=== PATIENT | male | born 1950 | race Caucasian/White ===

== ENCOUNTER → 2018-12-02 10:07 | Outpatient (CLI) | payer MEDICARE, SELFPAY ==
[2018-12-02 10:18] LABS: Microscopic, Urine URINE MICROSCOPIC (MICROSCOPIC)
[2018-12-02 14:01] LABS: Appearance,Urine CLEAR (Clear); Bilirubin,Urine Negative (Negative); Blood, Urine 1+ (Negative); Color,Urine STRAW (Yellow); Glucose,Urine (UA) Negative (Negative); Ketones,Urine Negative (Negative); Leukocyte Esterase,Urine Negative (Negative); Nitrate,Urine Negative (Negative); PH,Urine 6.5 (5.0-8.5); Protein,Urine Negative (Negative); Urobilinogen,Urine 0.2 EU/dl (0.2)
[2018-12-02 14:02] LABS: Basophils % 0.5 % (0.1-2.0); Eosinophils # 0.1 K/mm3 (0.0-0.4); Eosinophils % 1.5 % (0.1-12.0); Hemoglobin 14.2 g/dL (14.1-18.0); Lymphocytes # 1.5 K/mm3 (0.7-4.5); Lymphocytes % 17.2 % (10-50); Mean Corpuscular HGB Conc 30.3 g/dL (31.8-35.4); Mean Corpuscular Hemoglobin 27.2 pg (27.0-31.2); Mean Corpuscular Volume 89.8 fl (80-94); Mean Platelet Volume 8.8 fl (7.4-10.4); Monocytes # 0.6 K/mm3 (0.1-1.0); Monocytes % 6.6 % (1.7-9.3); Neutrophils # 6.5 K/mm3 (1.8-7.8); Neutrophils % 74.1 % (37.0-80.0); Platelet Count 141 K/mm3 (142-424); Red Blood Count 5.24 M/mm3 (4.60-6.20); Red Cell Distribution Width 17.4 % (11.5-17.5); White Blood Count 8.8 K/mm3 (4.8-10.8)
[2018-12-02 14:27] LABS: Alanine Aminotransferase 44 U/L (12-78); Albumin Level 3.5 gm/dL (3.4-5.0); Alkaline Phosphatase 115 U/L (46-116); Anion Gap 10.9 mEq/L (5-15); Aspartate Amino Transferase 29 U/L (15-37); Bilirubin,Total 1.7 mg/dL (0.2-1.0); Blood Urea Nitrogen 21 mg/dL (7-18); Calcium 8.9 mg/dL (8.5-10.1); Carbon Dioxide 33 mmol/L (21.0-32.0); Chloride 104 mmol/L (98-107); Chol/HDL Ratio 3.3 (1-3.5); Cholesterol 145 mg/dL (140-200); Creatine Kinase 94 U/L (39-308); Creatinine,Serum 1.55 mg/dL (0.70-1.30); Estimated Glomerular Filt Rate 45 ml/min (>60); GFR (African American) 54 ML/MIN (>60); Globulin 3.6 gm/dl (1.3-3.2); Glucose 96 mg/dL (74-106); HDL Cholesterol 44 mg/dL (27-67); LDL Cholesterol 81 mg/dL (0-130); Potassium 3.9 mmoL/L (3.5-5.1); Sodium 144 mmol/L (136-145); Thyroid Stimulating Hormone 1.99 uIU/ml (0.358-3.740); Total Protein,Serum 7.1 gm/dL (6.4-8.2); Triglycerides 100 mg/dL (30-200); VLDL Cholesterol 20 mg/dL (0-40)
[2018-12-02 14:29] LABS: Squamous Epithelial Cell,Urine Occasional #/hpf (0-5)
[2018-12-03 11:07] LABS: Folate 13.5 ng/mL (>3.0); Vitamin B12 1283 pg/mL (232-1245)
== END ==
PROVIDERS: PCP Emergency Medicine; Visit Provider Emergency Medicine
DX: E78.5 Hyperlipidemia, unspecified (principal); I25.10 Atherosclerotic heart disease of native coronary artery without angina pectoris; Z12.5 Encounter for screening for malignant neoplasm of prostate; N18.9 Chronic kidney disease, unspecified
CPT/HCPCS: 36415; 80053; 80061; 81001; 82550; 82607; 82746; 84443; 85025; G0103

== ENCOUNTER → 2018-12-23 10:18 | Outpatient (CLI) | payer MEDICARE, SELFPAY ==
[2018-12-23 14:27] LABS: Albumin Level 3.6 gm/dL (3.4-5.0); Anion Gap 11.3 mEq/L (5-15); Blood Urea Nitrogen 21 mg/dL (7-18); Calcium 8.7 mg/dL (8.5-10.1); Carbon Dioxide 32 mmol/L (21.0-32.0); Chloride 104 mmol/L (98-107); Creatinine,Serum 1.44 mg/dL (0.70-1.30); Estimated Glomerular Filt Rate 48 ml/min (>60); GFR (African American) 59 ML/MIN (>60); Glucose 104 mg/dL (74-106); Phosphorous 4.4 mg/dL (2.4-4.9); Potassium 4.3 mmoL/L (3.5-5.1); Sodium 143 mmol/L (136-145)
[2018-12-23 15:11] LABS: Creatinine,Urine Random 12 mg/dL (20-320)
[2018-12-23 15:55] LABS: Total Protein,Urine Random < 6.0 mg/dL (0.0-11.9)
== END ==
PROVIDERS: PCP Emergency Medicine
DX: N18.9 Chronic kidney disease, unspecified (principal)
CPT/HCPCS: 36415; 80069; 82570; 84155

== ENCOUNTER → 2019-04-04 09:18 | Outpatient (CLI) | payer MEDICARE, SELFPAY ==
[2019-04-04 13:40] LABS: Basophils % 0.5 % (0.1-2.0); Eosinophils # 0.2 K/mm3 (0.0-0.4); Eosinophils % 2.9 % (0.1-12.0); Hematocrit 46.1 % (42.0-52.0); Hemoglobin 13.7 g/dL (14.1-18.0); Lymphocytes # 1.5 K/mm3 (0.7-4.5); Lymphocytes % 19.4 % (10-50); Mean Corpuscular HGB Conc 29.8 g/dL (31.8-35.4); Mean Corpuscular Hemoglobin 30.3 pg (27.0-31.2); Mean Corpuscular Volume 101.9 fl (80-94); Mean Platelet Volume 8.8 fl (7.4-10.4); Monocytes # 0.5 K/mm3 (0.1-1.0); Neutrophils # 5.4 K/mm3 (1.8-7.8); Neutrophils % 71.2 % (37.0-80.0); Platelet Count 135 K/mm3 (142-424); Red Blood Count 4.52 M/mm3 (4.60-6.20); Red Cell Distribution Width 16.1 % (11.5-17.5); White Blood Count 7.6 K/mm3 (4.8-10.8)
[2019-04-04 14:26] LABS: Anion Gap 13.9 mEq/L (5-15); Blood Urea Nitrogen 20 mg/dL (7-18); Calcium 8.3 mg/dL (8.5-10.1); Carbon Dioxide 27 mmol/L (21.0-32.0); Chloride 108 mmol/L (98-107); Creatinine,Serum 1.41 mg/dL (0.70-1.30); Estimated Glomerular Filt Rate 50 ml/min (>60); GFR (African American) 60 ML/MIN (>60); Glucose 129 mg/dL (74-106); Potassium 3.9 mmoL/L (3.5-5.1); Sodium 145 mmol/L (136-145)
== END ==
PROVIDERS: PCP Emergency Medicine; Visit Provider Emergency Medicine
DX: N18.9 Chronic kidney disease, unspecified (principal)
CPT/HCPCS: 36415; 80048; 85025

== ENCOUNTER → 2019-12-23 08:17 | Outpatient (CLI) | payer MEDICARE, SELFPAY ==
[2019-12-23 08:22] LABS: Microscopic, Urine URINE MICROSCOPIC (MICROSCOPIC)
[2019-12-23 14:33] LABS: Basophils % 0.4 % (0.1-2.0); Eosinophils # 0.2 K/mm3 (0.0-0.4); Eosinophils % 2.7 % (0.1-12.0); Hematocrit 42.5 % (42.0-52.0); Hemoglobin 14.3 g/dL (14.1-18.0); Lymphocytes # 1.4 K/mm3 (0.7-4.5); Lymphocytes % 18.3 % (10-50); Mean Corpuscular HGB Conc 33.5 g/dL (31.8-35.4); Mean Corpuscular Hemoglobin 33.2 pg (27.0-31.2); Monocytes # 0.5 K/mm3 (0.1-1.0); Monocytes % 6.5 % (1.7-9.3); Neutrophils # 5.5 K/mm3 (1.8-7.8); Neutrophils % 72.1 % (37.0-80.0); Platelet Count 112 K/mm3 (142-424); Red Blood Count 4.29 M/mm3 (4.60-6.20); Red Cell Distribution Width 14.8 % (11.5-17.5); White Blood Count 7.6 K/mm3 (4.8-10.8)
[2019-12-23 14:39] LABS: Appearance,Urine CLEAR (Clear); Bilirubin,Urine Negative (Negative); Blood, Urine 1+ (Negative); Color,Urine YELLOW (Yellow); Glucose,Urine (UA) Negative (Negative); Ketones,Urine Negative (Negative); Leukocyte Esterase,Urine Negative (Negative); Nitrate,Urine Negative (Negative); Protein,Urine Negative (Negative); Specific Gravity, Urine 1.025 (1.005-1.030); Urobilinogen,Urine 0.2 EU/dl (0.2)
[2019-12-23 15:40] LABS: Alanine Aminotransferase 15 U/L (12-78); Albumin Level 3.7 g/dl (3.5-5.0); Albumin/Globulin Ratio 1.3 (1.1-1.8); Alkaline Phosphatase 101 U/L (38-126); Anion Gap 13.4 mEq/L (5-15); Aspartate Amino Transferase 29 U/L (17-59); Blood Urea Nitrogen 17 mg/dl (9-20); Carbon Dioxide 30 mmol/L (22.0-30.0); Chloride 103 mmol/L (98-107); Chol/HDL Ratio 3.1 (1-3.5); Cholesterol 119 mg/dl (140-200); Estimated Glomerular Filt Rate 66 ml/min (>60); GFR (African American) 80 ML/MIN (>60); Globulin 2.8 g/dL (1.3-3.2); Glucose 100 mg/dl (74-100); HDL Cholesterol 38 mg/dl (40-60); Potassium 4.4 mmoL/L (3.5-5.1); Sodium 142 mmol/L (136-145); Total Protein,Serum 6.5 g/dl (6.3-8.2); Triglycerides 93 mg/dl (30-150); VLDL Cholesterol 19 mg/dL (0-40)
[2019-12-23 15:51] LABS: Direct LDL Cholesterol 70.75 mg/dL (100-129)
[2019-12-23 16:13] LABS: Prostate Specific Ag Screen 1.9 ng/ml (0.0-4.0); Thyroid Stimulating Hormone 3.69 uIU/mL (0.465-4.68)
== END ==
PROVIDERS: Visit Provider Emergency Medicine
DX: I12.9 Hypertensive chronic kidney disease with stage 1 through stage 4 chronic kidney disease, or unspecified chronic kidney disease (principal); E08.59 Diabetes mellitus due to underlying condition with other circulatory complications; N18.9 Chronic kidney disease, unspecified; M79.10 Myalgia, unspecified site; M10.9 Gout, unspecified; Z12.5 Encounter for screening for malignant neoplasm of prostate
CPT/HCPCS: 36415; 80053; 80061; 81001; 84443; 85025; G0103

== ENCOUNTER → 2020-09-13 17:25 | Outpatient (CLI) | payer MEDICARE, SELFPAY ==
[2020-09-13 17:58] LABS: Basophils # 0.1 K/mm3 (0-0.2); Basophils % 0.7 % (0.1-2.0); Eosinophils # 0.2 K/mm3 (0.0-0.4); Hematocrit 47.1 % (42.0-52.0); Hemoglobin 14.8 g/dL (14.1-18.0); Lymphocytes # 1.8 K/mm3 (0.7-4.5); Lymphocytes % 21.1 % (10-50); Mean Corpuscular HGB Conc 31.4 g/dL (31.8-35.4); Mean Corpuscular Hemoglobin 31.3 pg (27.0-31.2); Mean Corpuscular Volume 99.7 fl (80-94); Mean Platelet Volume 9.4 fl (7.4-10.4); Monocytes # 0.6 K/mm3 (0.1-1.0); Monocytes % 6.6 % (1.7-9.3); Neutrophils # 5.8 K/mm3 (1.8-7.8); Neutrophils % 69.6 % (37.0-80.0); Platelet Count 132 K/mm3 (142-424); Red Blood Count 4.72 M/mm3 (4.60-6.20); Red Cell Distribution Width 14.7 % (11.5-17.5); White Blood Count 8.4 K/mm3 (4.8-10.8)
[2020-09-13 18:28] LABS: Alanine Aminotransferase 19 U/L (12-78); Albumin Level 4.2 g/dl (3.5-5.0); Albumin/Globulin Ratio 1.6 (1.1-1.8); Alkaline Phosphatase 108 U/L (38-126); Anion Gap 11.3 mEq/L (5-15); Aspartate Amino Transferase 30 U/L (17-59); Bilirubin,Total 1.2 mg/dl (0.2-1.3); Blood Urea Nitrogen 24 mg/dl (9-20); Carbon Dioxide 30 mmol/L (22.0-30.0); Chloride 105 mmol/L (98-107); Cholesterol 125 mg/dl (140-200); Estimated Glomerular Filt Rate 46 ml/min (>60); GFR (African American) 56 ML/MIN (>60); Globulin 2.7 g/dL (1.3-3.2); Glucose 87 mg/dl (74-100); HDL Cholesterol 42 mg/dl (40-60); Potassium 5.3 mmoL/L (3.5-5.1); Sodium 141 mmol/L (136-145); Total Protein,Serum 6.9 g/dl (6.3-8.2); Triglycerides 80 mg/dl (30-150); Uric Acid 4.9 mg/dl (3.5-8.5); VLDL Cholesterol 16 mg/dL (0-40)
[2020-09-13 18:39] LABS: Direct LDL Cholesterol 63.13 mg/dL (100-129)
== END ==
PROVIDERS: Visit Provider Internal Medicine Adolescent Medicine
DX: I10 Essential (primary) hypertension (principal); E78.2 Mixed hyperlipidemia; M1A.0790 Idiopathic chronic gout, unspecified ankle and foot, without tophus (tophi)
CPT/HCPCS: 80053; 80061; 84550; 85025

== ENCOUNTER → 2021-03-14 18:08 | Outpatient (CLI) | payer MEDICARE, SELFPAY ==
[2021-03-14 18:41] LABS: Basophils % 0.6 % (0.1-2.0); Eosinophils # 0.1 K/mm3 (0.0-0.4); Eosinophils % 0.7 % (0.1-12.0); Hematocrit 46.1 % (42.0-52.0); Hemoglobin 14.9 g/dL (14.1-18.0); Lymphocytes # 1.3 K/mm3 (0.7-4.5); Lymphocytes % 18.4 % (10-50); Mean Corpuscular HGB Conc 32.2 g/dL (31.8-35.4); Mean Corpuscular Hemoglobin 32.3 pg (27.0-31.2); Mean Corpuscular Volume 100.2 fl (80-94); Mean Platelet Volume 10.2 fl (7.4-10.4); Monocytes % 13.6 % (1.7-9.3); Neutrophils # 4.7 K/mm3 (1.8-7.8); Neutrophils % 66.7 % (37.0-80.0); Platelet Count 134 K/mm3 (142-424); Red Cell Distribution Width 14.3 % (11.5-17.5)
[2021-03-14 19:39] LABS: Alanine Aminotransferase 22 U/L (12-78); Albumin Level 4.2 g/dl (3.5-5.0); Albumin/Globulin Ratio 1.4 (1.1-1.8); Alkaline Phosphatase 116 U/L (38-126); Anion Gap 8.8 mEq/L (5-15); Aspartate Amino Transferase 39 U/L (17-59); Bilirubin,Total 1.9 mg/dl (0.2-1.3); Blood Urea Nitrogen 16 mg/dl (9-20); Calcium 9.1 mg/dl (8.4-10.2); Carbon Dioxide 34 mmol/L (22.0-30.0); Chloride 102 mmol/L (98-107); Chol/HDL Ratio 2.9 (1-3.5); Cholesterol 115 mg/dl (140-200); Estimated Glomerular Filt Rate 54 ml/min (>60); GFR (African American) 65 ML/MIN (>60); Globulin 2.9 g/dL (1.3-3.2); Glucose 97 mg/dl (74-100); HDL Cholesterol 39 mg/dl (40-60); Potassium 4.8 mmoL/L (3.5-5.1); Sodium 140 mmol/L (136-145); Total Protein,Serum 7.1 g/dl (6.3-8.2); Triglycerides 92 mg/dl (30-150); VLDL Cholesterol 18 mg/dL (0-40)
[2021-03-14 19:50] LABS: Direct LDL Cholesterol 52.57 mg/dL (100-129)
== END ==
PROVIDERS: Visit Provider Internal Medicine Adolescent Medicine
DX: I10 Essential (primary) hypertension (principal)
CPT/HCPCS: 80053; 80061; 85025

== ENCOUNTER → 2022-06-28 23:28 | Outpatient (CLI) | payer MEDICARE, MEDICAID, SELFPAY ==
[2022-06-28 17:38] LABS: Basophils # 0.1 K/mm3 (0-0.2); Basophils % 0.6 % (0.1-2.0); Eosinophils # 0.2 K/mm3 (0.0-0.4); Hemoglobin 15.4 g/dL (14.1-18.0); Lymphocytes # 1.7 K/mm3 (0.7-4.5); Lymphocytes % 19.7 % (10-50); Mean Corpuscular HGB Conc 31.5 g/dL (31.8-35.4); Mean Corpuscular Volume 98.4 fl (80-94); Mean Platelet Volume 9.8 fl (7.4-10.4); Monocytes # 0.7 K/mm3 (0.1-1.0); Monocytes % 8.3 % (1.7-9.3); Neutrophils # 5.9 K/mm3 (1.8-7.8); Neutrophils % 69.5 % (37.0-80.0); Platelet Count 149 K/mm3 (142-424); Red Blood Count 4.98 M/mm3 (4.60-6.20); Red Cell Distribution Width 14.8 % (11.5-17.5); White Blood Count 8.6 K/mm3 (4.8-10.8)
[2022-06-28 18:29] LABS: Hemoglobin A1C 5.6 % (4.0-6.0)
[2022-06-28 18:44] LABS: Alanine Aminotransferase 18 U/L (12-78); Albumin/Globulin Ratio 1.4 (1.1-1.8); Alkaline Phosphatase 116 U/L (38-126); Anion Gap 11.6 mEq/L (5-15); Aspartate Amino Transferase 31 U/L (17-59); Bilirubin,Total 1.4 mg/dl (0.2-1.3); Blood Urea Nitrogen 18 mg/dl (9-20); Calcium 8.6 mg/dl (8.4-10.2); Carbon Dioxide 32 mmol/L (22.0-30.0); Chloride 102 mmol/L (98-107); Cholesterol 133 mg/dl (140-200); Estimated Glomerular Filt Rate 50 ml/min (>60); GFR (African American) 60 ML/MIN (>60); Globulin 2.9 g/dL (1.3-3.2); Glucose 75 mg/dl (74-100); HDL Cholesterol 44 mg/dl (40-60); Potassium 4.6 mmoL/L (3.5-5.1); Sodium 141 mmol/L (136-145); Total Protein,Serum 6.9 g/dl (6.3-8.2); Triglycerides 126 mg/dl (30-150); VLDL Cholesterol 25 mg/dL (0-40)
[2022-06-28 19:14] LABS: Thyroid Stimulating Hormone 3.46 uIU/mL (0.465-4.68)
== END ==
PROVIDERS: PCP Family Medicine; Visit Provider Family Medicine
DX: R73.03 Prediabetes (principal); I10 Essential (primary) hypertension; Z00.00 Encounter for general adult medical examination without abnormal findings; R53.83 Other fatigue
CPT/HCPCS: 80053; 80061; 83036; 84443; 85025

== ENCOUNTER 2023-09-28 15:25 | Emergency (ER) | payer MEDICARE, SELFPAY ==
[2023-09-28 16:03] VITALS: BP 153/99; PULSE 77; RESP 16; TEMP 36.5; O2SAT 99; BMI 28.6
--- NOTE | 2023-09-28 16:13 | EXP.UTC ---
Discharge Plan Disposition Patient Disposition: Home, Self-Care Condition: Good Prescriptions Prescriptions: New valacyclovir [Valtrex] 1 gram tablet 1,000 mg PO BID 10 Days Qty: 20 0RF methylprednisolone [Medrol (Benito)] 4 mg tablets,dose pack 4 mg PO DIRECTED Qty: 21 0RF trifluridine 1 % drops 1 drp ophthalmic (eye) Q2H 7 Days Qty: 7.5 0RF Rx Instructions: administer 9 doses per day while awake gabapentin [Neurontin] 100 mg capsule 100 mg PO Q8H PRN (Reason: pain/itching) Qty: 21 0RF No Action cyanocobalamin (vitamin B-12) 500 mcg lozenge 500 mcg PO DAILY zinc acetate 50 mg (zinc) capsule 50 mg PO DAILY aspirin 81 mg tablet,delayed release (DR/EC) 81 mg PO DAILY bumetanide 1 mg tablet 1 mg PO Q OTHER DAY 90 Days Qty: 45 1RF allopurinol 300 mg tablet See Rx Instructions .ROUTE .COMPLEX Qty: 90 1RF Dose Instruction: Take 1 tablet by mouth once daily Rx Instructions: Take 1 tablet by mouth once daily atorvastatin 40 mg tablet 40 mg PO DAILY 90 Days Qty: 90 1RF carvedilol 12.5 mg tablet 12.5 mg PO BID 90 Days Qty: 180 1RF Rx Instructions: must administer with a meal/food Farxiga 5 mg tablet 5 mg PO DAILY Qty: 30 3RF Referrals Follow up/Referrals: Rudy Sifuentes MD [Primary Care Provider] - See instructions Activity Restrictions/Add. 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 by RN): pt states he has shingles. pt presents with R eye and R facial edema. pt c/o inching and pain 09/16. ongoing since 09/25/23 HEENT Symptoms (Recalled from RN notes): Yes Resp Symptoms (Recalled from RN notes): No Skin Symptoms (Recalled from RN notes): Yes MS Symptoms (Recalled from RN notes): No Functional Status (Recalled from RN notes): wnl History of Present Illness Provider Complaint: Blistering right side of forehead, eyelid. Itchy and painful. Started 09/25/23. Onset (ago): day(s) (3) Location: face and eyes Severity: severe Quality: burning Relieving factors: none Exacerbating factors: none Associated symptoms: denies other symptoms Treatments prior to arrival: none Related Data Home Medications Medication Instructions Recorded Confirmed aspirin 81 mg tablet,delayed 81 mg PO DAILY 02/16/22 04/05/23 release cyanocobalamin (vitamin B-12) 500 500 mcg PO DAILY 02/16/22 04/05/23 mcg lozenges zinc acetate 50 mg (zinc) capsule 50 mg PO DAILY 02/16/22 04/05/23 Previous Rx's Medication Instructions Recorded bumetanide 1 mg tablet 1 mg PO Q OTHER DAY 90 days #45 04/18/23 tabs allopurinol 300 mg tablet See Rx Instructions .Route 05/21/23 .COMPLEX #90 tabs atorvastatin 40 mg tablet 40 mg PO DAILY 90 days #90 tabs 06/29/23 carvedilol 12.5 mg tablet 12.5 mg PO BID 90 days #180 tabs 08/15/23 dapagliflozin propanediol 5 mg 5 mg PO DAILY #30 tabs 09/23/23 tablet (Farxiga) gabapentin 100 mg capsule 100 mg PO Q8H PRN pain/itching #21 09/28/23 (Neurontin) caps methylprednisolone 4 mg tablets in 4 mg PO DIRECTED #21 tabs 09/28/23 a dose pack (Medrol (Benito)) trifluridine 1 % eye drops 1 drp ophthalmic (eye) Q2H 7 days 09/28/23 #7.5 mL valacyclovir 1 gram tablet 1,000 mg PO BID 10 days #20 tabs 09/28/23 (Valtrex) Allergies Allergy/AdvReac Type Severity Reaction Status Date / Time No Known Allergies Allergy Verified 09/28/23 16:07 Worker's Comp Is this a Worker's Comp case?: No [facility] Disclaimer: The information contained in this section may have been updated after the patient was seen, as this information can be updated by other users. Medical History Coronary artery disease Hyperlipidemia Hypertension Pacemaker Surgical History H/O endarterectomy H/O eye surgery H/O heart artery stent Heart valve replaced Family History Mother Coronary artery disease Diabetes Social History Smoking Status: Current every day smoker tobacco type: smokeless tobacco alcohol intake: never substance use type: denies use current occupational status: retired Travel in the last 8 weeks: None household members: none housing: house ROS Obtained: Yes All systems reviewed & no additional complaints except as documented Integumentary/Breasts Skin/Breast: Reports as per HPI, Reports pruritus, Reports rash and Reports skin pain Physical Exam General General appearance: alert and in no apparent distress Head Head exam: atraumatic, normocephalic and normal inspection Eye Eye exam: Present PERRL, EOMI, conjunctival redness and periorbital swelling Chest Chest inspection: Present normal inspection and symmetric chest wall rise; Absent tenderness Respiratory Respiratory exam: Present normal lung sounds bilaterally; Absent respiratory distress Cardiovascular Cardiovascular exam: Present regular rate and normal rhythm; Absent JVD Extremities Exam Extremities exam: Present normal inspection, full ROM and normal capillary refill; Absent calf tenderness Neurological Exam Neurological exam: Present alert and oriented X3 Psychiatric Psychiatric exam: Present normal affect and normal mood Skin Skin exam: Present warm, dry, intact, normal color and rash (shingles) Lymphatic Lymphatic Findings: no adenopathy Medical Decision Making Sae Inquiry Pt receiving controlled substance: No Vital Signs: 09/28/23 16:03 Temperature 97.7 F Temperature Source Oral Pulse Rate [Left] 77 Respiratory Rate 16 Blood Pressure [Right Arm] 153/99 H Blood Pressure Mean [Right Arm] 117 Blood Pressure Source [Right Arm] Automatic Cuff Blood Pressure Position [Right Arm] Sitting 02 Sat by Pulse Oximetry 99
[2023-09-28 16:34] VITALS: BP 151/101; PULSE 69; RESP 16; TEMP 36.5; O2SAT 99
== END 2023-09-28 16:37 | disposition home or self-care (01) ==
PROVIDERS: Emergency Provider Physician Assistant; PCP Family Medicine
DX: B02.39 Other herpes zoster eye disease (principal); B02.8 Zoster with other complications
CPT/HCPCS: 99204; 99212; G0463

== ENCOUNTER 2023-11-01 16:26 | Outpatient (CLI) | payer MEDICARE, SELFPAY ==
[2023-11-01 17:21] LABS: Basophils % 0.5 % (0.1-2.0); Eosinophils # 0.1 K/mm3 (0.0-0.4); Eosinophils % 1.6 % (0.1-12.0); Hematocrit 48.2 % (42.0-52.0); Hemoglobin 15.7 g/dL (14.1-18.0); Lymphocytes # 1.4 K/mm3 (0.7-4.5); Lymphocytes % 20.2 % (10-50); Mean Corpuscular HGB Conc 32.5 g/dL (31.8-35.4); Mean Corpuscular Hemoglobin 32.6 pg (27.0-31.2); Mean Corpuscular Volume 100.3 fl (80-94); Mean Platelet Volume 9.4 fl (7.4-10.4); Monocytes # 0.5 K/mm3 (0.1-1.0); Monocytes % 7.2 % (1.7-9.3); Neutrophils % 70.5 % (37.0-80.0); Platelet Count 128 K/mm3 (142-424); Red Blood Count 4.81 M/mm3 (4.60-6.20); Red Cell Distribution Width 15.4 % (11.5-17.5); White Blood Count 7.1 K/mm3 (4.8-10.8)
[2023-11-01 17:41] LABS: Alanine Aminotransferase 20 U/L (12-78); Albumin Level 3.7 g/dl (3.5-5.0); Albumin/Globulin Ratio 1.3 (1.1-1.8); Alkaline Phosphatase 108 U/L (38-126); Anion Gap 12.2 mEq/L (5-15); Aspartate Amino Transferase 32 U/L (17-59); Bilirubin,Total 1.6 mg/dl (0.2-1.3); Blood Urea Nitrogen 16 mg/dl (9-20); Calcium 8.9 mg/dl (8.4-10.2); Carbon Dioxide 27 mmol/L (22.0-30.0); Chloride 106 mmol/L (98-107); Estimated Glomerular Filt Rate 49 ml/min (>60); GFR (African American) 60 ML/MIN (>60); Globulin 2.8 g/dL (1.3-3.2); Glucose 71 mg/dl (74-100); Potassium 4.2 mmoL/L (3.5-5.1); Sodium 141 mmol/L (136-145); Total Protein,Serum 6.5 g/dl (6.3-8.2)
[2023-11-01 17:49] LABS: NT Pro Brain Natriuretic Pep. 4170 pg/mL (0-450)
== END 2023-11-01 23:59 | disposition home or self-care (01) ==
LOC: LAB.DROPOF 16:26
PROVIDERS: PCP Family Medicine; Visit Provider Family Medicine
DX: E78.5 Hyperlipidemia, unspecified (principal); I50.9 Heart failure, unspecified
CPT/HCPCS: 80053; 83880; 85025

== ENCOUNTER 2024-12-31 10:44 | Outpatient (CLI) | payer MEDICARE, SELFPAY ==
--- OUTSIDE RECORDS SUMMARY | 2024-12-24 10:30 | XMS_ITS | Encounter Summary ---
Author Organization [facility] [place] Address [address] [place] [address] Care Team Providers Care Salon Manager Name Role Phone Rudy Sifuentes MD Primary Care Provider [phone] Reason for Visit * Reason Comments Permanent atrial fibrillation Encounter Details Date Type Department Care Team (Late st Contact Info) Description 12/24/2024 10:30 AM EDT Office Visit [facility] [address] [facility] [address] [place] [id number] Eugene Kauffman MD [address] [facility] [address] [place] [address] Permanent atrial fibrillation (Primary Dx); Chronic systolic CHF (congestive heart failure); DCM (dilated cardiomyopathy); Coronary artery disease involving blackfeet coronary artery of blackfeet heart without angina pectoris Social History Tobacco Use Types Packs/Day Years Used Date Smoking Tobacco: Never Passive Smoke Exposure: Past Smokeless Tobacco: Current Chew Alcohol Use Standard Drinks/Week Comments No 0 (1 standard drink = 0.6 oz pur e alcohol) Sex and Gender Information Value Date Recorded Sex Assigned at Not on file Legal Sex Male 11:47 AM EDT Gender Identity Not on file Sexual Orientation Not on file Occupation Industry Job Start Date Job End Date Retired from [employer] Not on file Not on file Not on file documented as of this encounter Last Filed Vital Signs Vital Sign Reading Time Taken Comments Blood Pressure 120/80 12/24/2024 10:37 AM EDT Pulse 71 12/24/2024 10:37 AM EDT Temperature - - Respiratory Rate - - Oxygen Saturation 98% 12/24/2024 10: 37 AM EDT Inhaled Oxygen Concentration - - Weight 84.3 kg (185 lb 12.8 oz) 025 10:37 AM EDT Height 175.3 cm (5' 9.02 ) 12/24/2024 1 0:37 AM EDT Body Mass Index 27.43 12/24/2024 10:37 AM EDT documented in this encounter Progress Notes * Eugene Kauffman MD - 12/24/2024 10:30 AM EDTAssociated Order(s): ECG 12 Lead Post-Procedure Diagnose(s): DCM (dilated cardiomyopathy); Permanent atrial fibrillation; Chronic systolic CHF (congestive heart failure); Coronary artery disease involving blackfeet coronary artery of blackfeet heart without angina pectoris Micky Petersby 1950 Home phone not available 12/24/[address] [facility] Referring Provider: No ref. provider found Rudy Sifuentes MD [address] [place] [address] [facility] [place] [address] Chief Complaint Patient presents with Permanent atrial fibrillation Problem List: Aortic stenosis Echo 10/09/2017: EF 45-50%, LA is moderately dilated, mild-moderate AI, severe with mean gradient of 19.76mmHg (peak 30.51mmHg) and GLORY of 0.8cm2 Right and left heart cath 01/09/2018: severe low gradient low output , severe global depression with LVEF 37%, moderate-severe PAH, 2 vessel CAD (LAD and RCA) AVR with #27 [employer] Trifecta tissue valve, repair of ascending aneurysm, CABG x1 with SVG to PDA,left atrial MAZE and LA clip with #45 Atricure clip (02/01/2018) Echo 02/07/2018: left heart and right atrium are enlarged, global hypokinesia of both ventricles, LVEF is 20%, normally functioning bioprosthetic aortic valve is noted, mid MR and moderate TR, RVSP 49mmHg Echocardiogram 05/06/18: LVEF 0.25, LV moderately dilated, LA dilated, moderate MR, SHEILA successfullyoccluded, normal functioning bioprosthetic aortic valve ([employer] medical #27 trifecta). Echo 11/2018: EF < 20% and RVSP = 56 mmHg Echo, 07/21/21, EF 21-25%. LV mildly dilated, LV with borderline LVH, RA mildly dilated, mod MR, Moderate TR. Echocardiogram 01/2024: EF 35 to 40%, mild left atrial enlargement, mild MR, mild TR, mild pulmonicinsufficiency global hypokinesis Permanent Atrial fibrillation, asymptomatic CHADsVASC=4, previously on Eliquis MAZE and LA clip with #45 Atricure clip 02/01/2018, AGR Carotid artery stenosis Critical LICA stenosis s/p left CEA 2015, AGR Carotid duplex 08/2017: 50-69% HEMANTH stenosis, no hemodynamically significant LICA stenosis Hypertension Coronary artery disease [facility] 01/2018: 2 vessel CAD, EF 37% CABG x1 (SVG to PDA) at time of AVR/MAZE/SHEILA clip Hyperlipidemia Mixed cardiomyopathy/Chronic Systolic CHF EF 37% by cath 01/09/18 EF 20 % post op, 02/07/18 - Lifevest at discharge 02/08/18 EF 25% by RASHID, 05/06/18 DDD ICD ([facility]) Implant 06/17/18 - Dr. Kauffman Intolerance to ARB/JUANY - hypotension CKD III History of nephrolithiasis History of polypectomy Chewing tobacco use Acute RUQ pain November 2018 Cholecystitis ruled out by HIDA scan Thought related to congestive hepatopathy EGD with no varices, duodenitis or ulcers Allergies No Known Allergies Current Medications Current Outpatient Medications: allopurinol (ZYLOPRIM) 300 MG tablet, Take 1 tablet by mouth Daily., Disp: , Rfl: aspirin 81 MG tablet, Take 1 tablet by mouth Every Morning., Disp: , Rfl: atorvastatin (LIPITOR) 40 MG tablet, Take 1 tablet by mouth Daily., Disp: , Rfl: bumetanide (BUMEX) 1 MG tablet, Take 1 tablet by mouth Every Other Day., Disp: , Rfl: carvedilol (COREG) 25 MG tablet, Take 1 tablet by mouth 2 (Two) Times a Day. (Patient taking differently: Take 0.5 tablets by mouth 2 (Two) Times a Day.), Disp: 60 tablet, Rfl: 6 Farxiga 5 MG tablet tablet, Take 1 tablet by mouth Daily., Disp: , Rfl: prednisoLONE acetate (PRED FORTE) 1 % ophthalmic suspension, INSTILL ONE DROP INTO AFFECTED EYE FOUR TIMES A DAY FOR 4 DAYS, THEN ONE DROP TWICE A DAY FOR 4 DAYS, BEGINNING AFTER YAG DIRECTED, Disp: , Rfl: vitamin B-12 (CYANOCOBALAMIN) 1000 MCG tablet, Take 1 tablet by mouth Daily., Disp: , Rfl: vitamin C (ASCORBIC ACID) 250 MG tablet, Take 1 tablet by mouth Daily., Disp: , Rfl: Zinc 50 MG capsule, Take by mouth Daily., Disp: , Rfl: No current facility-administered medications for this visit. Facility-Administered Medications Ordered in Other Visits: Chlorhexidine Gluconate Cloth 2 % pads 1 application, 1 application , Topical, Q12H PRN, Michael Escamilla PA History of Present Illness Pt presents for follow up of permanent atrial fibrillation, CAD, chronic systolic CHF, with [facility] ICDcheck. Since we last saw the pt, he had a repeat echocardiogram 01/2024 which showed his EF of 35-40%. 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 He has SOB with minimal exertional activities which has been worse in the heat. He denies CP, LH, and dizziness, syncope. Denies any hospitalizations, ER visits, bleeding, or TIA/CVA symptoms. Blood pressure been stable for the most part. Vitals: 12/24/24 1037 BP: 120/80 BP Location: Left arm Patient Position: Sitting Cuff Size: Adult Pulse: 71 SpO2: 98% Weight: 84.3 kg (185 lb 12.8 oz) Height: 175.3 cm (69.02 ) Body mass index is 27.43 kg/m??. PE: General: NAD Neck: no JVD, no carotid bruits, no TM Heart RRR, NL S1, S2, S4 present, no rubs, murmurs Lungs: CTA, no wheezes, rhonchi, or rales Abd: soft, non-tender, NL BS Ext: No musculoskeletal deformities, no edema, cyanosis, or clubbing Psych: normal mood and affect Diagnostic Data: Dual Chamber ICD Manual Interrogation: Normal function. 100% AFIB. RA paced less than 1%. RV paced 91%. Underlying atrial fibrillation in 40s. Normal thresholds and impedances. Battery 5 years. ECG 12 Lead Date/Time: 12/24/2024 11:17 AM Performed by: Eugene Kauffman MD Authorized by: Eugene Kauffman MD Comparison: compared with previous ECG from 04/26/2023 Similar to previous ECG Rhythm: atrial fibrillation and paced BPM: 70 1. Permanent atrial fibrillation 2. Chronic systolic CHF (congestive heart failure) 3. DCM (dilated cardiomyopathy) 4. Coronary artery disease involving blackfeet coronary artery of blackfeet heart without angina pectoris Plan: 1. Permanent AF: - Prior MAZE, LA clip (atriclip) now on ASA alone. RASHID 2019 confirmed closure -Rate controlled on coreg, continue 2. CHF/HRrEF: -Echo, 07/21/21, EF 21-25% (previously <20% in 2019). LV mildly dilated, LV with borderline LVH, RA mildly dilated, mod MR, Moderate TR. -continue GDMT with with Coreg, Bumex, jardiance (intolerant to Entresto/ and reported intolerance of JUANY/ ARB due to hypotension). -Echocardiogram 01/2024: EF 35 to 40%, mild left atrial enlargement, mild MR, mild TR, mild pulmonic insufficiency global hypokinesis. continues with class III congestive heart failure symptoms despite medical therapy which is also limited by orthostasis. Will recommend upgrade to biventricular pacemaker at this time as he is paced 90% of time in the ventricle. Long discussion with the patient today explaining that a lot of his symptoms may be due to RV dyssynchronous pacing. The patient is interested and would like to pursue. Understands all the risk and benefits in detail. 3. Orthostatic hypotension/Hypotension : -Intolerance to Entresto- BP okay today - no recent orthostatic symptoms. -Continue coreg 4. CKD -follows with PCP. 5. CAD/VHD: -s/p CABG x 1 and tissues AVR 2017 -continue ASA, statin, BBL - per Dr. Balderas F/up in 12 months Scribed for Eugene Kauffman MD by Vee Vigil PA-C. 12/24/2024 11:17 EDT I, Eugene Kauffman MD, personally performed the services face to face as described and documented by the above named individual. I have made any necessary edits and it is both accurate and complete 12/24/2024 11:17 EDT documented in this encounter Plan of Treatment Upcoming Encounters Date Type Department Care Team (Late st Contact Info) Description 01/23/2025 10:30 AM EDT Pre-Admission Testing [facility] PREADMISSION T [address] [place] [address] 01/30/2025 1:10 PM EDT Hospital Encounter [facility] EP LAB [address] [place] [phone] Eugene Kauffman MD [address] [facility] [address] [place], [place] [id number] Paroxysmal atrial fibrillation; DCM (dilated cardiomyopathy); Chronic systolic CHF (congestive heart failure); ICD (implantable cardioverter-defibr illator) in place 01/30/2025 1:10 PM EDT - 01/30/2025 2:50 PM EDT Surgery [facility] EP LAB [address] [place] [address] Eugene Kauffman MD [address] [facility] [address] [place], [place] [id number] *BSC* DC ICD upgrade to Biventricular ICD. No meds to hold. [80358 (CPT ) +6 more] 05/07/2025 9:15 AM EST Office Visit [facility] [address] [facility] [address] [place] [id number] Magnus Balderas MD [address] [facility] [address] [place], [place] [id number] 05/05/2026 2:30 PM EST Office Visit [facility] [address] [facility] [address] [place] [address] Eugene Kauffman MD [address] [place] [address] Scheduled Orders Name Type Priority Associated Diagnoses Orde r Schedule Cardiology Scan Cardiac Services Ord ered: 12/24/2024 documented as of this encounter Procedures Procedure Name Priority Date/Time Associated Diagnosis Comments ECG 12-LEAD Routine 12/24/2024 Permanent atrial fibrillation Chronic systolic CHF (congestive heart failure) DCM (dilated cardiomyopathy) Coronary artery disease involving blackfeet coronary artery of blackfeet heart without angina pectoris documented in this encounter Results * ECG 12-LEAD (12/24/2024) Narrative 12/24/2024 Eugene Kauffman MD 12/24/2024 11:18 AM ECG 12 Lead Date/Time: 12/24/2024 11:17 AM Performed by: Eugene Kauffman MD Authorized by: Eugene Kauffman MD Comparison: compared with previous ECG from 04/26/2023 Similar to previous ECG Rhythm: atrial fibrillation and paced BPM: 70 Procedure Note Eugene Kauffman MD - 12/24/2024 10:30 AM EDT Micky Westoughby 1950 Home phone not available 12/24/[address] [facility] Referring Provider: No ref. provider found Rudy Sifuentes MD [address] [facility] [address] [address] Chief Complaint Patient presents with Permanent atrial fibrillation Problem List: Aortic stenosis Echo 10/09/2017: EF 45-50%, LA is moderately dilated, mild-moderate AI,severe with mean gradient of 19.76mmHg (peak 30.51mmHg) and GLORY of0.8cm2 Right and left heart cath 01/09/2018: severe low gradient low output ,severe global depression with LVEF 37%, moderate-severe PAH, 2 vessel CAD(LAD and RCA) AVR with #27 [employer] Trifecta tissue valve, repair of ascending aneurysm,CABG x1 with SVG to PDA, left atrial MAZE and LA clip with #45 Atricureclip (02/01/2018) Echo 02/07/2018: left heart and right atrium are enlarged, globalhypokinesia of both ventricles, LVEF is 20%, normally functioningbioprosthetic aortic valve is noted, mid MR and moderate TR, RVSP 49mmHg Echocardiogram 05/06/18: LVEF 0.25, LV moderately dilated, LA dilated,moderate MR, SHEILA successfully occluded, normal functioning bioprostheticaortic valve ([employer] medical #27 trifecta). Echo 11/2018: EF < 20% and RVSP = 56 mmHg Echo, 07/21/21, EF 21-25%. LV mildly dilated, LV with borderline LVH, RAmildly dilated, mod MR, Moderate TR. Echocardiogram 01/2024: EF 35 to 40%, mild left atrial enlargement, mildMR, mild TR, mild pulmonic insufficiency global hypokinesis Permanent Atrial fibrillation, asymptomatic CHADsVASC=4, previously on Eliquis MAZE and LA clip with #45 Atricure clip 02/01/2018, AGR Carotid artery stenosis Critical LICA stenosis s/p left CEA 2015, AGR Carotid duplex 08/2017: 50-69% HEMANTH stenosis, no hemodynamicallysignificant LICA stenosis Hypertension Coronary artery disease [facility] 01/2018: 2 vessel CAD, EF 37% CABG x1 (SVG to PDA) at time of AVR/MAZE/SHEILA clip Hyperlipidemia Mixed cardiomyopathy/Chronic Systolic CHF EF 37% by cath 01/09/18 EF 20 % post op, 02/07/18 - Lifevest at discharge 02/08/18 EF 25% by RASHID, 05/06/18 DDD ICD ([facility]) Implant 06/17/18 - Dr. Kauffman Intolerance to ARB/JUANY - hypotension CKD III History of nephrolithiasis History of polypectomy Chewing tobacco use Acute RUQ pain November 2018 Cholecystitis ruled out by HIDA scan Thought related to congestive hepatopathy EGD with no varices, duodenitis or ulcers Allergies No Known Allergies Current Medications Current Outpatient Medications: allopurinol (ZYLOPRIM) 300 MG tablet, Take 1 tablet by mouth Daily.,Disp: , Rfl: aspirin 81 MG tablet, Take 1 tablet by mouth Every Morning., Disp: ,Rfl: atorvastatin (LIPITOR) 40 MG tablet, Take 1 tablet by mouth Daily.,Disp: , Rfl: bumetanide (BUMEX) 1 MG tablet, Take 1 tablet by mouth Every Other Day.,Disp: , Rfl: carvedilol (COREG) 25 MG tablet, Take 1 tablet by mouth 2 (Two) Times aDay. (Patient taking differently: Take 0.5 tablets by mouth 2 (Two) Timesa Day.), Disp: 60 tablet, Rfl: 6 Farxiga 5 MG tablet tablet, Take 1 tablet by mouth Daily., Disp: , Rfl: prednisoLONE acetate (PRED FORTE) 1 % ophthalmic suspension, INSTILL ONEDROP INTO AFFECTED EYE FOUR TIMES A DAY FOR 4 DAYS, THEN ONE DROP TWICE ADAY FOR 4 DAYS, BEGINNING AFTER YAG DIRECTED, Disp: , Rfl: vitamin B-12 (CYANOCOBALAMIN) 1000 MCG tablet, Take 1 tablet by mouthDaily., Disp: , Rfl: vitamin C (ASCORBIC ACID) 250 MG tablet, Take 1 tablet by mouth Daily.,Disp: , Rfl: Zinc 50 MG capsule, Take by mouth Daily., Disp: , Rfl: No current facility-administered medications for this visit. Facility-Administered Medications Ordered in Other Visits: Chlorhexidine Gluconate Cloth 2 % pads 1 application, 1 application ,Topical, Q12H PRN, Michael Escamilla PA History of Present Illness Pt presents for follow up of permanent atrial fibrillation, CAD, chronicsystolic CHF, with [facility] ICD check. Since we last saw the pt, he had arepeat echocardiogram 01/2024 which showed his EF of 35-40%. 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 He has SOB with minimalexertional activities which has been worse in the heat. He denies CP, LH,and dizziness, syncope. Denies any hospitalizations, ER visits, bleeding,or TIA/CVA symptoms. Blood pressure been stable for the most part. Vitals: 12/24/24 1037 BP: 120/80 BP Location: Left arm Patient Position: Sitting Cuff Size: Adult Pulse: 71 SpO2: 98% Weight: 84.3 kg (185 lb 12.8 oz) Height: 175.3 cm (69.02 ) Body mass index is 27.43 kg/m . PE: General: NAD Neck: no JVD, no carotid bruits, no TM Heart RRR, NL S1, S2, S4 present, no rubs, murmurs Lungs: CTA, no wheezes, rhonchi, or rales Abd: soft, non-tender, NL BS Ext: No musculoskeletal deformities, no edema, cyanosis, or clubbing Psych: normal mood and affect Diagnostic Data: Dual Chamber ICD Manual Interrogation: Normal function. 100% AFIB. RA paced less than 1%. RV paced 91%.Underlying atrial fibrillation in 40s. Normal thresholds and impedances.Battery 5 years. ECG 12 Lead Date/Time: 12/24/2024 11:17 AM Performed by: Eugene Kauffman MD Authorized by: Eugene Kauffman MD Comparison: compared with previousECG from 04/26/2023 Similar to previous ECG Rhythm: atrial fibrillation and paced BPM: 70 1. Permanent atrial fibrillation 2. Chronic systolic CHF (congestive heart failure) 3. DCM (dilated cardiomyopathy) 4. Coronary artery disease involving blackfeet coronary artery of nativeheart without angina pectoris Plan: 1. Permanent AF: - Prior MAZE, LA clip (atriclip) now on ASA alone. RASHID 2018 confirmedclosure -Rate controlled on coreg, continue 2. CHF/HRrEF: -Echo, 07/21/21, EF 21-25% (previously <20% in 2019). LV mildly dilated, LVwith borderline LVH, RA mildly dilated, mod MR, Moderate TR. -continue GDMT with with Adelaida, Kim, scout (intolerant to Entresto/and reported intolerance of JUANY/ ARB due to hypotension). -Echocardiogram 01/2024: EF 35 to 40%, mild left atrial enlargement, mildMR, mild TR, mild pulmonic insufficiency global hypokinesis. continueswith class III congestive heart failure symptoms despite medical therapywhich is also limited by orthostasis. Will recommend upgrade tobiventricular pacemaker at this time as he is paced 90% of time in theventricle. Long discussion with the patient today explaining that a lotof his symptoms may be due to RV dyssynchronous pacing. The patient isinterested and would like to pursue. Understands all the risk andbenefits in detail. 3. Orthostatic hypotension/Hypotension : -Intolerance to Entresto- BP okay today - no recent orthostatic symptoms. -Continue coreg 4. CKD -follows with PCP. 5. CAD/VHD: -s/p CABG x 1 and tissues AVR 2018 -continue ASA, statin, BBL - per Dr. Balderas F/up in 12 months Scribed for Eugene Kauffman MD by Vee Vigil PA-C. 12/24/2024 11:17EDT I, Eugene Kauffman MD, personally performed the services face to faceas described and documented by the above named individual. I have made anynecessary edits and it is both accurate and complete 12/24/2024 11:17 EDT us Eugene Kauffman MD ECG ORDERABLES Final Result documented in this encounter Visit Diagnoses Diagnosis Permanent atrial fibrillation- Primary Atrial fibrillation Chronic systolic CHF (congestive heart failure) DCM (dilated cardiomyopathy) Other primary cardiomyopathies Coronary artery disease involving blackfeet coronary artery of blackfeet heart without angina pectoris Paroxysmal atrial fibrillation Atrial fibrillation DCM (dilated cardiomyopathy) Other primary cardiomyopathies Chronic systolic CHF (congestive heart failure) ICD (implantable cardioverter-defibrillator) in place Paroxysmal atrial fibrillation Atrial fibrillation DCM (dilated cardiomyopathy) Other primary cardiomyopathies Chronic systolic CHF (congestive heart failure) ICD (implantable cardioverter-defibrillator) in place documented in this encounter Care Teams Salon Manager Relationship Specialty Start Date End Date Rudy Sifuentes MD [address] [place] [address] PCP - General Family Medicine 04/26/23 documented as of this encounter
[2024-12-31 20:21] LABS: Hematocrit 44.8 % (42.0-52.0); Hemoglobin 13.7 g/dL (14.1-18.0); Immature Granulocytes % 0.1 %; Mean Corpuscular HGB Conc 30.6 g/dL (31.8-35.4); Mean Corpuscular Hemoglobin 30.1 pg (27.0-31.2); Mean Corpuscular Volume 98.5 fl (80-94); Nucleated Red Blood Cells % 0 %; Platelet Count 122 K/mm3 (142-424); Red Blood Count 4.55 M/mm3 (4.60-6.20); Red Cell Distribution Width-SD 59.7 fL; White Blood Count 7.5 K/mm3 (4.8-10.8)
[2024-12-31 20:54] LABS: Alanine Aminotransferase 19 U/L (12-78); Albumin Level 4.0 g/dl (3.5-5.0); Albumin/Globulin Ratio 1.3 (1.1-1.8); Alkaline Phosphatase 109 U/L (38-126); Anion Gap 10.3 mEq/L (5-15); Aspartate Amino Transferase 29 U/L (17-59); Bilirubin,Total 1.4 mg/dl (0.2-1.3); Blood Urea Nitrogen 24 mg/dl (9-20); Calcium 8.9 mg/dl (8.4-10.2); Carbon Dioxide 28 mmol/L (22.0-30.0); Chloride 103 mmol/L (98-107); Creatinine,Serum 1.40 mg/dl (0.66-1.25); Estimated Glomerular Filt Rate 49 ml/min (>60); GFR (African American) 60 ML/MIN (>60); Globulin 3.0 g/dL (1.3-3.2); Glucose 96 mg/dl (74-100); HDL Cholesterol 41 mg/dl (40-60); Potassium 4.3 mmoL/L (3.5-5.1); Sodium 137 mmol/L (136-145); Total Protein,Serum 7.0 g/dl (6.3-8.2); Uric Acid 4.0 mg/dl (3.5-8.5)
[2024-12-31 21:39] LABS: Cholesterol 119 mg/dl (140-200); Triglycerides 86 mg/dl (30-150)
[2024-12-31 23:46] LABS: Hemoglobin A1C 5.7 % (4.0-6.0)
--- OUTSIDE RECORDS SUMMARY | 2025-01-02 10:47 | XMS_ITS | Clinical Summary ---
[facility] Address [address] [place] [address] Care Team Providers Care Courtesy Clerk Name Role Phone Rudy Sifuentes MD Primary Care Provider [phone]- [phone] Allergies No known active allergies Medications aspirin 81 MG tablet Take 1 tablet by mouth Every Morning. 4 Active carvedilol (COREG) 25 MG tablet Take 1 tablet by mouth 2 (Two) Times a Day. 60 tablet 6 9 Active Additional Information Patient taking differently: 12.5 mgOral 2 Times Daily, Reported on 12/24/2024 atorvastatin (LIPITOR) 40 MG tablet Take 1 tablet by mouth Daily. Active vitamin C (ASCORBIC ACID) 250 MG tablet Take 1 tablet by mouth Daily. Active vitamin B-12 (CYANOCOBALAMIN ) 1000 MCG tablet Take 1 tablet by mouth Daily. Active bumetanide (BUMEX) 1 MG tablet Take 1 tablet by mouth Every Other Day. 0 Active allopurinol (ZYLOPRIM) 300 MG tablet Take 1 tablet by mouth Daily. 1 Active Zinc 50 MG capsule Take by mouth Daily. Active Farxiga 5 MG tablet tablet Take 1 tablet by mouth Daily. 3 Active prednisoLONE acetate (PRED FORTE) 1 % ophthalmic suspension INSTILL ONE DROP INTO AFFECTED EYE FOUR TIMES A DAY FOR 4 DAYS, THEN ONE DROP TWICE A DAY FOR 4 DAYS, BEGINNING AFTER YAG DIRECTED 5 Active Active Problems Problem Noted Date Diagnosed Date CKD (chronic kidney disease), stage III 11/16/19 19 Congestive hepatology and cholecystitis -- nonin fective 11/11/2018 Hyperbilirubinemia 11/11/2018 Anemia 11/11/2018 Pleural effusion, bilateral 11/11/2018 ICD (implantable cardioverter-defibrillator) in place 11/11/2018 Chronic systolic CHF (congestive heart failure) 09/18/2018 DCM (dilated cardiomyopathy) 05/30/2018 Overview (05/30/2018): Added automatically from request for surgery [id number] Hyperlipidemia 02/03/2018 Acute kidney injury superimposed on chronic kidn ey disease 02/02/2018 Coronary artery disease invo lving mechoopda coronary artery of mechoopda heart without angina pectoris 01/15/2018 Hypertension 12/24/2017 Aortic valve stenosis s/p ti ssue AVR and repair of ascending thoracic aneurysm 02/01/18 12/24/2017 Overview (04/25/2023): Echo (10/09/2017): EF 45-50%, LA is moderately dilated, mild-moderate AI, severe with mean gradient 19 mmHg Right and left heart cath (01/09/2018): severe low gradient low output , severe global depression with LVEF 37%, moderate-severe PAH, 2 vessel CAD (LAD and RCA) AVR with #27 [employer] Trifecta tissue valve, repair of ascending aneurysm, CABG x1 with SVG to PDA, left atrial MAZE and LA clip with #45 Atricure clip (02/01/2018) Echo (02/07/2018): LVEF is 20%, normally functioning bioprosthetic aortic valve is noted, mid MR and moderate TR, RVSP 49mmHg RASHID (05/06/2018): LVEF 25%. Normal functioning bioprosthetic aortic valve ([employer] [facility] medical #27 trifecta). Moderate MR. Successfully occluded SHEILA Echo (11/2018): EF < 20% and RVSP = 56 mmHg Echo (07/21/2021): LVEF =21 - 25%. Grade 2 diastolic dysfunction. Normal functioning bioprosthetic aortic valve. Moderate MR and TR. RVSP 62 mmHg mmHg Atrial fibrillation 12/24/2017 Overview (05/06/2018): RASHID (05/06/2018): Successful SHEILA occlusion. LVEF 25% Bilateral carotid artery stenosis 11/01/2017 Overview (07/18/2021): Critical LICA stenosis s/p left CEA 2016, AGR Carotid duplex 08/2017: 50-69% HEMANTH stenosis, no hemodynamically significant LICA stenosis S/P left carotid endarterectomy 2016 09/16/2015 Resolved Problems Problem Noted Date Diagnosed Date Resolved Date Hypoxia 11/11/2018 11/13/2018 Coronary artery disease invo lving mechoopda coronary artery of mechoopda heart with angina pectoris 01/14/2018 02/01/2018 Aortic valve disorder 10/09/20162017 Carotid stenosis 08/06/2015 02/01/2018 Encounters Date Type Department Care Team Description 12/24/2024 10:30 AM EDT Office Visit [facility] [address] [place] [address] [address] [place] [address] Eugene Kauffman MD Permanent atrial fibrillation (Primary Dx); Chronic systolic CHF (congestive heart failure); DCM (dilated cardiomyopathy); Coronary artery disease involving mechoopda coronary artery of mechoopda heart without angina pectoris 12/24/2024 Travel 12/17/2024 Travel from Last 3 Months Family History Medical History Relation Name Comments Coronary artery disease Brother 1 Coronary artery disease Brother 2 Hypertension Brother 2 Coronary artery disease Brother 3 Hypertension Brother 3 Dementia Father Coronary artery disease Mother Heart attack Mother Coronary artery disease Other Diabetes Other Hypertension Other Dementia Paternal Grandmother Kidney disease Sister Relation Name Status Comments Brother 1 Alive Brother 2 Alive Brother 3 Alive Father Mother Other Paternal Grandmother Sister Alive Social History Tobacco Use Types Packs/Day Years Used Date Smoking Tobacco: Never Passive Smoke Exposure: Past Smokeless Tobacco: Current Chew Tobacco Cessation:Ready to Q uit: Not Asked; Counseling Given: Not Answered Alcohol Use Standard Drinks/Week Comments No 0 [...] file Not on file Not on file Last Filed Vital Signs Vital Sign Reading Time Taken Comments Blood Pressure 120/80 12/24/2024 10:37 AM EDT Pulse 71 12/24/2024 10:37 AM EDT Temperature 36.4 C (97.5 F) 11/20/2018 3:27 PM EDT Respiratory Rate 20 11/20/2018 3:27 PM EDT Oxygen Saturation 98% 12/24/2024 10: 37 AM EDT Inhaled Oxygen Concentration - - Weight 84.3 kg (185 lb 12.8 oz) 025 10:37 AM EDT Height 175.3 cm (5' 9.02 ) 12/24/2024 1 0:37 AM EDT Body Mass Index 27.43 12/24/2024 10:37 AM EDT Plan of Treatment Upcoming Encounters Date Type Department Care Team (Late st Contact Info) Description 01/23/2025 10:30 AM EDT Pre-Admission Testing [facility] PREADMISS[facility] T [address] [place] [address] 01/30/2025 1:10 PM EDT Hospital Encounter [facility] EP LAB [address] [facility] [place] [address] Eugene Kauffman MD [address] [facility] [address] [place] [address] Paroxysmal atrial fibrillation; DCM (dilated cardiomyopathy); Chronic systolic CHF (congestive heart failure); ICD (implantable cardioverter-defibr illator) in place 01/30/2025 1:10 PM EDT - 01/30/2025 2:50 PM EDT Surgery [facility] EP LAB [address] [facility] [place] [address] Eugene Kauffman MD [address] [facility] [address] [place] [address] *BSC* DC ICD upgrade to Biventricular ICD. No meds to hold. [17376 (CPT ) +6 more] 05/07/2025 9:15 AM EST Office Visit [facility] [address] [facility] [address] [place] [id number] Magnus Balderas MD [address] [facility] [address] [place], [place] [id number] 05/05/2026 2:30 PM EST Office Visit [facility] [address] [facility] [address] [place] [address] Euegne Kauffman MD [address] [facility] [address] [place], [place] [id number] Health Maintenance Due Date Last Done Comments Pneumococcal Vaccine 50+ (1 of 2 - PCV) 02/13/1967 TDAP/TD VACCINES (1 - Tdap) 02/13/1967 COLOGUARD 02/13/1993 COLON CANCER SCREENING 5 YEAR SIGMOIDOSCOPY 02/13/1993 COLONOSCOPY 02/13/1993 COLORECTAL CANCER SCREENING 02/13/1993 CT COLONOGRAPHY 02/13/1993 FECAL OCCULT BLOOD TEST 02/13/1993 FIT Testing (1 year) 02/13/1993 ZOSTER VACCINE (1 of 2) 02/13/1998 ANNUAL WELLNESS VISIT 09/06/2016 RSV Vaccine - Adults (1 - 1-dose 75+ series) 3 INFLUENZA VACCINE 11/07/2024 COVID-19 Vaccine ( - season) 2024 HEPATITIS C SCREENING Completed 11/13/2018 Medical Devices Implanted Type Area Candy Waffle Assembler Device Identifier Shelf Expiration Date Model / Serial / Lot Markr [facility] Radiomark Disk Ro Oilve - [id number] Implanted:Qty : 1 on 02/01/2018 by Demetrio Gastelum MD at [facility] Implant N/A: Heart [employer] [id number] / / [id number] Trifecta W/Millsap Tech Aort Tiss 27mm - [id number] Implanted:Qty : 1 on 02/01/2018 by Demetrio Gastelum MD at [facility] Implant N/A: Heart [employer] 12/27/2020 [id number] / / [id number] Appl Clip Sheila Atriclip Flx 45mm - [id number] Implanted:Qty : 1 on 02/01/2018 by Demetrio Gastelum MD at [facility] Implant N/A: Heart ATR[employer]URE 04/09/2020 [id number] / / [id number] Metcalf Df4 - [id number] - [id number] Implanted:Qty : 1 on 06/17/2018 by Eugene Kauffman MD at [facility] Implant [employer] 10/27/2018 [id number] / [id number] / [id number] Ld Pm Fineline 2 Sterox Poly 52cm [id number] - [id number] - [id number] Implanted:Qty : 1 on 06/17/2018 by Eugene Kauffman MD at [facility] Lead [employer] 10/28/2019 [id number] / [id number] / [id number] Ld Defib Endotak [place] Df4 [place] 1coil Act 64cm - [id number] - [id number] Implanted:Qty : 1 on 06/17/2018 by Eugene Kauffman MD at [facility] Lead [employer] 03/03/2020 [id number] / [id number] / [id number] Procedures Procedure Name Priority Date/Time Associated Diagnosis Comments ECG 12-LEAD Routine 12/24/2024 Permanent atrial fibrillation Chronic systolic CHF (congestive heart failure) DCM (dilated cardiomyopathy) Coronary artery disease involving mechoopda coronary artery of mechoopda heart without angina pectoris REMOTE DEVICE CHECK 11/27/2024 2 :31 AM EDT HEPATITIS C ANTIBODY Routine 11/13/2018 5:52 PM EDT from Last 3 Months or Most Recently Relevant to Health Maintenance Results * ECG 12-LEAD (12/24/2024) Narrative 12/24/2024 Eugene Kauffman MD 12/24/2024 11:18 AM ECG 12 Lead Date/Time: 12/24/2024 11:17 AM Performed by: Eugene Kauffman MD Authorized by: Eugene Kauffman MD Comparison: compared with previous ECG from 04/26/2023 Similar to previous ECG Rhythm: atrial fibrillation and paced BPM: 70 Procedure Note Eugene Kauffman MD - 12/24/2024 10:30 AM EDT Micky Wyatt 1950 Home phone not available 12/24/2024 [facility] Referring Provider: No ref. provider found Rudy Sifuentes MD [address] [place] [address] [facility] [address] Chief Complaint Patient presents with Permanent atrial fibrillation Problem List: Aortic stenosis Echo 10/09/2017: EF 45-50%, LA is moderately dilated, mild-moderate AI,severe with mean gradient of 19.76mmHg (peak 30.51mmHg) and GLORY of0.8cm2 Right and left heart cath 01/09/2018: severe low gradient low output ,severe global depression with LVEF 37%, moderate-severe PAH, 2 vessel CAD(LAD and RCA) AVR with #27 [facility] Trifecta tissue valve, repair of ascending aneurysm,CABG [...] hemodynamicallysignificant LICA stenosis Hypertension Coronary artery disease [facility] 01/2018: 2 vessel CAD, EF 37% CABG x1 (SVG to PDA) at time of AVR/MAZE/SHEILA clip Hyperlipidemia Mixed cardiomyopathy/Chronic Systolic CHF EF 37% by cath 01/09/18 EF 20 % post op, 02/07/18 - Lifevest at discharge 02/08/18 EF 25% by RASHID, 05/06/18 DDD ICD ([facility]) Implant 06/17/18 - Dr. Kauffman Intolerance to [...] permanent atrial fibrillation, CAD, chronicsystolic CHF, with [facility] ICD check. Since we last saw the [...] (dilated cardiomyopathy) 4. Coronary artery disease involving mechoopda coronary artery of nativeheart without angina pectoris Plan: 1. Permanent AF: - Prior MAZE, LA clip (atriclip) now on ASA alone. RASHID 2018 confirmedclosure -Rate controlled on coreg, continue 2. CHF/HRrEF: -Echo, 07/21/21, EF 21-25% (previously <20% in 2019). LV mildly dilated, LVwith borderline LVH, RA mildly dilated, mod MR, Moderate TR. -continue GDMT with with Coreg, Bumex, jardiance (intolerant to Entresto/and reported intolerance of JUANY/ [...] MD by Vee Vigil PA-C. 12/24/2024 11:17EDT IEugene MD, personally performed the services face to faceas described and documented by the above named individual. I have made anynecessary edits and it is both accurate and complete 12/24/2024 11:17 EDT us Eugene Kauffman MD ECG ORDERABLES Final Result * Remote Device Check (11/27/2024 2:31 AM EDT) Date Time Interrogation Session [id number] [facility] Type Interrogation Session Remote Scheduled [facility] Implantable Pulse Generator Candy Waffle Assembler [id number] [facility] [employer] [facility] Implantable Pulse Generator Type ICD [facility] [employer] Implantable Pulse Generator Model D142 [facility] Implantable Pulse Generator Serial Number [id number] [facility] Implantable Pulse Generator Implant Date [id number] [facility] Battery Remaining Percentage 55.00 % [facility] Battery Remaining Longevity 48.0 mo [facility] Battery Status Beginning of Service [facility] Capacitor Charge Time 11.900 [facility] Pete Statistic RA Percent Paced 1.00 [facility] Pete Statistic RV Percent Paced 91.00 [facility] Atrial Tachy Statistic AT/AF [employer]air Percent 100.00 [facility] Lead Channel RA Sensing Intrinsic Amplitude 1.800 [facility] Lead Channel Setting RA Sensing Sensitivity 0.25 [facility] Lead Channel RA Impedance Value 583 [facility] Lead Channel Setting RA Pacing Amplitude 3.500 [facility] Lead Channel Setting RA Pacing Pulse Width 0.5 [facility] Lead Channel RV Sensing Intrinsic Amplitude 21.400 [facility] Lead Channel Setting RV Sensing Sensitivity 0.60 [facility] Lead Channel RV Impedance Value 395 [facility] Lead Channel Setting RV Pacing Amplitude 2.000 [facility] Lead Channel Setting RV Pacing Pulse Width 0.5 [facility] Pete Setting Mode (NBG Code) DDDR [facility] Pete Setting Lower Rate Limit 60 [facility] Pete Setting AT Mode Switch Rate 170 [facility] Pete Setting Maximum Tracking Rate 130 [facility] Pete Setting Maximum Sensor Rate 130 [facility] Pete Setting PAV Delay 220 [facility] Pete Setting GILLIAN Delay 220 [facility] Therapy Statistic Recent Shocks Delivered 0 [facility] Therapy Statistic Recent Shocks Aborted 0 [facility] Therapy Statistic Recent ATP Delivered 0 [facility] SHOCK MEASURED IMPEDANCE 64 [facility] Lead Channel Setting RA Sensing Polarity Bipolar [facility] Lead Channel Setting RV Sensing Polarity Bipolar [facility] Lead Channel Setting RA Pacing Polarity Bipolar [facility] Lead Channel Setting RV Pacing Polarity Bipolar [facility] Lead Channel RA Pacing Threshold Polarity Bipolar [facility] Lead Channel RV Pacing Threshold Polarity Bipolar [facility] Zone Setting Type Category VF [facility] IDC RATE 1 220 [facility] THERAPIES Burst,31J,41J,41J x 6 [facility] Zone Setting Status On [facility] Zone ID 1 [facility] Zone Setting Type Category VT [facility] IDC RATE 1 180 [facility] Zone Setting Status Monitor [facility] Zone ID 2 [facility] 11/27/2024 2:31 AM EDT Eugene Kauffman MD CV IMPLANTABLE CARDIAC DEVIC E Final Result [facility] * Hepatitis C Antibody (11/13/2018 5:52 PM EDT) Hepatitis C Ab Non-Reacti ve Non-Reacti ve 11/13/2018 6:42 PM EDT [facility] Blood Venipuncture / Unknown 11/13/2018 5:52 PM EDT 11/13/2018 6:13 PM EDT us Luis Angel Hansen MD LAB BLOOD ORDERABLES Final Res ult Performing Organization Address City/[facility]/ZIP Co de Phone Number [facility]
[address] [place] [address], from Last 3 Months or Most Recently Relevant to Health Maintenance Insurance MEDICARE A & B Member Subscriber Plan / Payer (Ef fective 2013-Present) Name:Micky Wyatt Member ID:[id number] Relation to Subscriber:Self Name:Micky Wyatt Subscriber ID:[id number] Payer ID:[id number] Group ID:Not on file Type:Not on file Address: [address] [facility] [employer] Advance Directives Documents on File Type Date Recorded Patient [facility] Press Expl anation LIVING WILL - SCAN 01/09/2018 8:39 AM JOSE GIRON WILL 12-23-2017 POWER OF SILVER CHASER - SCAN 01/09/2018 8:39 AM POA 12-23-2017 * CPR (Attempt to Resuscitate) (Latest Code Status on File) Date Activated Date Inactivated Comments 11/11/2018 6:17 PM 11/15/2018 7:16 PM Question Answer Comments Code Status (Patient has no pulse and is not breathing): CPR (Attempt to Resuscitate) Medical Interventions (Patie nt has pulse or is breathing): Full Level Of Support Discussed With: Patient * CPR (Attempt to Resuscitate) Date Activated Date Inactivated Comments 06/17/2018 9:54 AM 06/18/2018 1:14 PM Question Answer Comments Code Status (Patient has no pulse and is not breathing): CPR (Attempt to Resuscitate) Medical Interventions (Patie nt has pulse or is breathing): Full Level Of Support Discussed With: Patient * CPR (Attempt to Resuscitate) Date Activated Date Inactivated Comments 02/01/2018 12:05 PM 02/08/2018 7:42 PM Question Answer Comments Code Status (Patient has no pulse and is not breathing): CPR (Attempt to Resuscitate) Medical Interventions (Patie nt has pulse or is breathing): Full Level Of Support Discussed With: Patient * CPR (Attempt to Resuscitate) Date Activated Date Inactivated Comments 02/01/2018 12:05 PM 02/01/2018 12:05 PM Question Answer Comments Code Status (Patient has no pulse and is not breathing): CPR (Attempt to Resuscitate) Medical Interventions (Patie nt has pulse or is breathing): Full Level Of Support Discussed With: Patient * CPR (Attempt to Resuscitate) Date Activated Date Inactivated Comments 01/09/2018 2:35 PM 01/09/2018 9:34 PM Question Answer Comments Code Status (Patient has no pulse and is not breathing): CPR (Attempt to Resuscitate) Medical Interventions (Patie nt has pulse or is breathing): Full Level Of Support Discussed With: Patient Healthcare Agents on File Name Relationship Healthcare Agent [facility] p Communication Macie Posadas [facility] Care Surrogate Care Teams Courtesy Clerk Relationship Specialty Start Date End Date Rudy Sifuentes MD [address] [place] [address] [place] [address] PCP - General Family Medicine 04/26/23
--- OUTSIDE RECORDS SUMMARY | 2025-01-02 10:47 | XMS_ITS | Encounter Summary ---
[facility] Address [address] [place] [address] Care Team Providers Care Pasteurizer Name Role Phone Rudy Sifuentes MD Primary Care Provider +1- [phone] Encounter Details Date Type Department Care Team (Latest Contact Info) Description 12/24/2024 Travel Social History Tobacco Use Types Packs/Day Years [...] on file documented as of this encounter Plan of Treatment Upcoming Encounters Date Type Department Care Team (Late st Contact Info) Description 01/23/2025 10:30 AM EDT Pre-Admission Testing [facility] PREADMISSION T [address] [place] [address] 01/30/2025 1:10 PM EDT Hospital Encounter [facility] EP LAB [address] [place] [address] Eugene Kauffman MD [address] [facility] [address] [place] [address] Paroxysmal atrial fibrillation; DCM (dilated cardiomyopathy); Chronic systolic CHF (congestive heart failure); ICD (implantable cardioverter-defibr illator) in place 01/30/2025 1:10 PM EDT - 01/30/2025 2:50 PM EDT Surgery [facility] EP LAB [address] [place] [id number] Eugene Kauffman MD [address] [facility] [address] [address] [place] [address] *BSC* DC ICD upgrade to Biventricular ICD. No meds to hold. [12775 (CPT ) +6 more] 05/07/2025 9:15 AM EST Office Visit [facility] [address] [facility] [address] [place] [address] Magnus Balderas MD [address] [facility] [address] [place] [address] 05/05/2026 2:30 PM EST Office Visit [facility] [address] [facility] [address] [place] [address] Eugene Kauffman MD [address] [facility] [address] [place] [address] documented as of this encounter Visit Diagnoses Not on filedocumented in this encounter Care Teams Pasteurizer Relationship Specialty Start Date End Date Rudy Sifuentes MD [address] [place] [address] [facility] [place] [address] PCP - General Family Medicine 04/26/23 documented as of this encounter
--- OUTSIDE RECORDS SUMMARY | 2025-01-02 10:47 | XMS_ITS | Referral Summary ---
Author Organization [employer] ([place], [place], [place], [place]) Address [address] [place] [address] Care Team Providers Care Telegraph Inspector Name Role Phone Unavailable Primary Care Provider Unavailabl e Social History Tobacco Use Types Packs/Day Years Used Date Smoking Tobacco: Never Assessed Sex and Gender Information Value Date Recorded Sex Assigned at Not on file Legal Sex Male 9:01 PM CDT Gender Identity Not on file Sexual Orientation Not on file Plan of Treatment Not on file
--- OUTSIDE RECORDS SUMMARY | 2025-01-02 10:47 | XMS_ITS | Encounter Summary ---
[facility] [address] [place] [address] Care Team Providers Care Project Structural Engineer Name Role Phone Rudy Sifuentes MD Primary Care Provider [phone]- [phone] Encounter Details Date Type Department Care Team (Latest Contact Info) Description 12/17/2024 Travel Social History Tobacco Use Types Packs/Day [...] - [facility] [address] [place] [address] 01/30/2025 1:10 PM EDT Hospital Encounter [facility] EP LAB [address] [place] [address] Eugene Kauffman MD [address] [facility] [address] [address] [place] [address] Paroxysmal atrial fibrillation; DCM (dilated cardiomyopathy); Chronic systolic CHF (congestive heart failure); ICD (implantable cardioverter-defibr illator) in place 01/30/2025 1:10 PM EDT - 01/30/2025 2:50 PM EDT Surgery [facility] EP LAB [address] [place] [address] Eugene Kauffman MD [address] [facility] [address] [address] [place] [address] *BSC* DC ICD upgrade to Biventricular ICD. No meds to hold. [07005 (CPT ) +6 more] 05/07/2025 9:15 AM EST Office Visit [facility] [address] [facility] [address] [place] [address] Magnus Balderas MD [address] [facility] [address] [place] [address] 05/05/2026 2:30 PM EST Office Visit [facility] [address] [facility] [address] [place] [address] Eugene Kauffman MD [address] [facility] [address] [place] [address] documented as of this encounter Visit Diagnoses Not on filedocumented in this encounter Care Teams Project Structural Engineer Relationship Specialty Start Date End Date Rudy Sifuentes MD [address] [place] [address] PCP - General Family Medicine 04/26/23 documented as of this encounter
--- OUTSIDE RECORDS SUMMARY | 2025-01-02 10:47 | XMS_ITS | Clinical Summary ---
Author Organization [employer] ([place], [place], [place], [place]) Address [address] [place] [address] Care Team Providers Care Juvenile Justice Specialist Name Role Phone Unavailable Primary Care Provider [...]
== END 2024-12-31 23:59 ==
LOC: LAB.DROPOF 01-02 10:46
PROVIDERS: PCP Family Medicine; Visit Provider Family Medicine
DX: M10.9 Gout, unspecified (principal); E11.9 Type 2 diabetes mellitus without complications; I50.9 Heart failure, unspecified; E78.5 Hyperlipidemia, unspecified; Z11.4 Encounter for screening for human immunodeficiency virus [HIV]
CPT/HCPCS: 80053; 80061; 83036; 84550; 85025; 87389